=== PATIENT | female | born 1975 | race Two or more races ===

== ENCOUNTER 2017-07-18 11:29 | Emergency (ER) | payer OTHER ==
--- NOTE | 2017-07-18 12:02 | PHYS DOC ---
Adult General Chief Complaint Chief Complaint: ABDOMINAL PAIN HPI HPI Patient is a 41 year old female who presents with abdominal pain. Spoke going on for the last 2 days. She has a kidney stone at the [facility] and follows the [facility] for this. She presents to ER complaining of worsening pain, sore throat and fevers. She states she's also has sore throat for last 2 days. She's had some nausea without any vomiting. She's also felt like she's been having a fever. She's been not wanting eat or drink much over the last few days. States he's also on her period currently. Review of Systems Review of Systems Constitutional: Positive for fever, Denies chills [] Eyes: Denies change in visual acuity, redness, or eye pain [] HENT: Denies nasal congestion or sore throat [] Respiratory: Denies cough or shortness of breath [] Cardiovascular: No additional information not addressed in HPI [] GI: Positive for abdominal pain, nausea, Denies vomiting, bloody stools or diarrhea [] : Denies dysuria or hematuria [] Musculoskeletal: Denies back pain or joint pain [] Integument: Denies rash or skin lesions [] Neurologic: Denies headache, focal weakness or sensory changes [] Endocrine: Denies polyuria or polydipsia [] All other systems were reviewed and found to be within normal limits, except as documented in this note. Current Medications Current Medications Current Medications Medications (Trade) Dose Ordered Sig/Minal Start Time Stop Time Status Last Admin Dose Admin Acetaminophen (Tylenol) 1,000 mg 1X ONCE 07/18/17 13:15 07/18/17 13:16 DC 07/18/17 12:52 1,000 MG Ceftriaxone Sodium 50 ml @ 100 mls/hr 1X ONCE 07/18/17 13:45 07/18/17 14:14 DC 07/18/17 13:50 100 MLS/HR Morphine Sulfate 4 mg PRN Q15MIN PRN 07/18/17 12:30 07/18/17 17:13 DC 07/18/17 13:51 4 MG Ondansetron HCl (Zofran) 4 mg 1X ONCE 07/18/17 12:30 07/18/17 12:31 DC 07/18/17 12:47 4 MG Sodium Chloride 1,000 ml @ 1,000 mls/hr 1X ONCE 07/18/17 13:45 07/18/17 14:44 DC 07/18/17 13:50 1,000 MLS/HR Allergies Allergies Allergies Coded Allergies Type Severity Reaction Last Updated Verified No Known Drug Allergies 07/18/17 No Physical Exam Physical Exam Constitutional: Well developed, well nourished, no acute distress, non-toxic appearance. [] HENT: Normocephalic, atraumatic, bilateral external ears normal, oropharynx moist, erythematous with exudates, no oral exudates, nose normal. [] Eyes: PERRLA, EOMI, conjunctiva normal, no discharge. [] Neck: Normal range of motion, no tenderness, supple, no stridor. [] Cardiovascular:Heart rate regular rhythm, tachycardic, no murmur [] Lungs & Thorax: Bilateral breath sounds clear to auscultation [] Abdomen: Bowel sounds normal, soft, and her to palpation of the left suprapubic area, no rebound or guarding appreciated, no masses, no pulsatile masses. [] Skin: Warm, dry, no erythema, no rash. [] Back: No tenderness, no CVA tenderness. [] Extremities: No tenderness, no cyanosis, no clubbing, ROM intact, no edema. [] Neurologic: Alert and oriented X 3, normal motor function, normal sensory function, no focal deficits noted. [] Psychologic: Affect normal, judgement normal, mood normal. [] Current Patient Data Vital Signs Vital Signs Date Time Temp Pulse Resp B/P (MAP) Pulse Ox O2 Delivery O2 Flow Rate FiO2 07/18/17 16:45 86 16 95/65 (75) 98 Room Air 07/18/17 15:20 99.1 99.1 Lab Values Laboratory Tests Test 07/18/17 11:45 07/18/17 12:05 07/18/17 12:30 Group A Streptococcus Rapid Positive (NEGATIVE) Urine Collection Type Void Urine Color Yellow Urine Clarity Turbid Urine pH 6.5 Urine Specific [place] 1.025 Urine Protein >=300 mg/dL (NEG-TRACE) Urine Glucose (UA) Negative mg/dL (NEG) Urine Ketones (Stick) 40 mg/dL (NEG) Urine Blood Large (NEG) Urine Nitrite Positive (NEG) Urine Bilirubin Negative (NEG) Urine Urobilinogen Dipstick 1.0 mg/dL (0.2 mg/dL) Urine Leukocyte Esterase Large (NEG) Urine RBC Fobs /HPF (0-2) Urine WBC Tntc /HPF (0-4) Urine Bacteria Many /HPF (0-FEW) Urine Test Negative Lactic Acid Level 1.7 mmol/L (0.4-2.0) Urine Opiates Screen Neg (NEG) Urine Methadone Screen Neg (NEG) Urine Barbiturates Neg (NEG) Urine Phencyclidine Screen Neg (NEG) Urine Amphetamine/Methamphetamine Neg (NEG) Urine Benzodiazepines Screen Neg (NEG) Urine Cocaine Screen Neg (NEG) Urine Cannabinoids Screen Neg (NEG) Urine Ethyl Alcohol Neg (NEG) White Blood Count 18.9 x10^3/uL (4.0-11.0) H Red Blood Count 5.03 x10^6/uL (4.30-5.70) Hemoglobin 14.3 g/dL (13.0-17.5) Hematocrit 42.5 % (39.0-53.0) Mean Corpuscular Volume 85 fL (79-100) Mean Corpuscular Hemoglobin 29 pg (25-35) Mean Corpuscular Hemoglobin Concent 34 g/dL (31-37) Red Cell Distribution Width 14.0 % (11.5-14.5) Platelet Count 244 x10^3/uL (140-400) Neutrophils (%) (Auto) 88 % (31-73) H Lymphocytes (%) (Auto) 7 % (24-48) L Monocytes (%) (Auto) 4 % (0-9) Eosinophils (%) (Auto) 0 % (0-3) Basophils (%) (Auto) 0 % (0-3) Neutrophils # (Auto) 16.7 x10^3uL (1.8-7.7) H Lymphocytes # (Auto) 1.3 x10^3/uL (1.0-4.8) Monocytes # (Auto) 0.8 x10^3/uL (0.0-1.1) Eosinophils # (Auto) 0.0 x10^3/uL (0.0-0.7) Basophils # (Auto) 0.1 x10^3/uL (0.0-0.2) Segmented Neutrophils % 83 % (35-66) H Band Neutrophils % 11 % (0-9) H Lymphocytes % 5 % (24-48) L Monocytes % 1 % (0-10) Platelet Estimate Adequate (ADEQUATE) Prothrombin Time 13.8 SEC (11.7-14.0) Prothrombin Time INR 1.1 (0.8-1.1) PTT 38 SEC (24-38) Sodium Level 136 mmol/L (136-145) Potassium Level 3.5 mmol/L (3.5-5.1) Chloride Level 98 mmol/L (98-107) Carbon Dioxide Level 28 mmol/L (21-32) Anion Gap 10 (6-14) Blood Urea Nitrogen 12 mg/dL (7-20) Creatinine 0.9 mg/dL (0.6-1.0) Estimated GFR (Cockcroft-Gault) 69.3 Glucose Level 100 mg/dL (70-99) H Calcium Level 8.7 mg/dL (8.5-10.1) Total Bilirubin 0.4 mg/dL (0.2-1.0) Direct Bilirubin 0.1 mg/dL (0.0-0.2) Aspartate Amino Transferase (AST) 19 U/L (15-37) Alanine Aminotransferase (ALT) 19 U/L (14-59) Alkaline Phosphatase 58 U/L (46-116) Creatine Kinase 65 U/L (26-192) Creatine Kinase MB (Mass) < 0.5 ng/mL (0.0-3.6) Creatine Kinase MB Relative Index 0.8 % (0-4) Total Protein 8.3 g/dL (6.4-8.2) H Albumin 3.8 g/dL (3.4-5.0) Lipase 59 U/L (73-393) L Laboratory Tests 07/18/17 12:30 Laboratory Tests 07/18/17 12:30 Microbiology 07/18/17 Blood Culture - Preliminary, Resulted NO GROWTH AFTER 1 DAY 07/18/17 Urine Culture - Preliminary, Resulted 07/18/17 Urine Culture Result 1 (HAYLEY) - Preliminary, Resulted Microbiology 07/18/17 Blood Culture - Preliminary, Resulted NO GROWTH AFTER 1 DAY 07/18/17 Urine Culture - Preliminary, Resulted 07/18/17 Urine Culture Result 1 (HAYLEY) - Preliminary, Resulted EKG EKG [] Radiology/Procedures Radiology/Procedures [facility] [address] [place] [address] IMAGING REPORT Signed PATIENT: MINDA BISWAS ACCOUNT: [id number] : 1975 LOCATION: ER AGE: 41 SEX: F EXAM STATUS: REG ER ORD. PHYSICIAN: JENNIFER PAREDES MD REASON: hx of stone PROCEDURE: RENAL COMPLETE BILATERAL Renal ultrasound dated 07/18/2017. No comparison available. CLINICAL INDICATION: Flank pain. History of stones. FINDINGS: Right kidney measures 11.1 cm in length. Left kidney measures 12.9 cm in length. There is moderate to severe left hydronephrosis. No definite shadowing calculus. Urinary bladder is nondistended. There may be a small amount of debris in the bladder lumen. IMPRESSION: Moderate to severe left hydronephrosis. Distal obstructing stone or stricture is possible. If indicated, CT could better evaluate. Electronically signed by: Tyler Dumont MD (07/18/2017 3:08 PM) [facility] DICTATED and SIGNED BY: TYLER DUMONT MD DATE: 07/18/17 1506 CC: JENNIFER PAREDES MD; TAY SMITH ~ Impressions: Fever Strep throat Sepsis Course & Med Decision Making Course & Med Decision Making Pertinent Labs and Imaging studies reviewed. (See chart for details) She presents to the fever 103 and she received 1 g Tylenol, she received 2 L normal saline and her heart rate has improved. Patient doesn't meet sepsis criteria with a fever tachycardia, she has had a source with her throat and urine. Lactic acid is not elevated. She is received 2 L of fluids which based on her weight meets her 30 mg/kg bolus. She was started on 1 g Rocephin for her group A strep positive rapid strep and her UTI. Ultrasound of her renal system was pending at this time. Spoke with [facility] and the patient has been accepted by Dr. Ynes Byrnes. She is in stable condition this time being transported by ground ambulance service. Patient's agreeable to this plan is in stable condition at this time. Dragon Disclaimer Dragon Disclaimer This electronic medical record was generated, in whole or in part, using a voice recognition dictation system. Departure Departure Impression: Primary Impression: Fever Disposition: 02 TRANSFER [facility] Condition: STABLE JENNIFER PAREDES MD Jul 18, 2017 12:02
[2017-07-18 12:13] LABS: NEGATIVE OBC STREP NEG; POSITIVE OBC STREP POS
[2017-07-18] MEDS ORDERED: IV NORMAL SALINE 1000ML BAG 1,000 ML IV SCH (12:18)
[2017-07-18 12:22] LABS: BILIRUBIN,URINE NEGATIVE (NEG); GLUCOSE,URINE NEGATIVE (NEG); NITRITE,URINE POSITIVE (NEG); PH,URINE 6.5; PROTEIN,URINE >=300 mg/dL (NEG-TRACE)
[2017-07-18 12:30] LABS: BACTERIA,URINE MANY /HPF (0-FEW); RBC,URINE FOBS /HPF (0-2); WBC,URINE TNTC /HPF (0-4)
[2017-07-18] MEDS ORDERED: ONDANSETRON PF 4 MG/2 ML VIAL. IV ONE (12:30)
[2017-07-18 12:49] LABS: BASO # 0.1 x10^3/uL (0.0-0.2); BASO % 0 % (0-3); EOS % 0 % (0-3); HEMATOCRIT 42.5 % (39.0-53.0); HEMOGLOBIN 14.3 g/dL (13.0-17.5); LYMPH # 1.3 x10^3/uL (1.0-4.8); LYMPH % 7 % (24-48); MEAN CORPUSCULAR HEMOGLOBIN 29 pg (25-35); MEAN CORPUSCULAR HGB CONC 34 g/dL (31-37); MEAN CORPUSCULAR VOLUME 85 fL (79-100); MONO % 4 % (0-9); NEUT % 88 % (31-73); PLATELET COUNT 244 x10^3/uL (140-400); RED BLOOD COUNT 5.03 x10^6/uL (4.30-5.70); WHITE BLOOD COUNT 18.9 x10^3/uL (4.0-11.0)
[2017-07-18] MEDS: MORPHINE SULFATE 4 MG/ML DISP.SYRIN. IV/SQ PRN ×2 (12:49→13:51)
[2017-07-18 12:58] LABS: NEG OBC UR NEG; POS OBC UR POS
[2017-07-18 13:04] LABS: INR 1.1 (0.8-1.1); PROTHROMBIN TIME PATIENT 13.8 SEC (11.7-14.0)
[2017-07-18 13:14] LABS: CALCIUM 8.7 mg/dL (8.5-10.1); CREATININE 0.9 mg/dL (0.6-1.0); GFR 69.3; POTASSIUM 3.5 mmol/L (3.5-5.1)
[2017-07-18] MEDS ORDERED: ACETAMINOPHEN 500 MG TABLET PO ONE (13:15)
[2017-07-18 13:25] LABS: BARBITURATES NEG (NEG); BENZODIAZEPINES NEG (NEG); CANNABINOIDS NEG (NEG); COCAINE NEG (NEG); METHADONE NEG (NEG); OPIATES NEG (NEG); PHENCYCLIDINE NEG (NEG)
[2017-07-18] MEDS ORDERED: IV NORMAL SALINE 1000ML BAG 1,000 ML IV ONE (13:45)
[2017-07-18 13:51] LABS: ALBUMIN 3.8 g/dL (3.4-5.0); DIRECT BILIRUBIN 0.1 mg/dL (0.0-0.2); TOTAL BILIRUBIN 0.4 mg/dL (0.2-1.0); TOTAL PROTEIN 8.3 g/dL (6.4-8.2)
[2017-07-18 14:00] LABS: PLT ESTIMATE ADEQUATE (ADEQUATE)
[2017-07-18 14:33] LABS: CREATINE KINASE 65 U/L (26-192)
[2017-07-18 14:45] LABS: CKMB MASS < 0.5 ng/mL (0.0-3.6)
--- NOTE | 2017-07-18 15:11 | RAD ---
Renal ultrasound dated 07/18/2017. No comparison available. CLINICAL INDICATION: Flank pain. History of stones. FINDINGS: Right kidney measures 11.1 cm in length. Left kidney measures 12.9 cm in length. There is moderate to severe left hydronephrosis. No definite shadowing calculus. Urinary bladder is nondistended. There may be a small amount of debris in the bladder lumen. IMPRESSION: Moderate to severe left hydronephrosis. Distal obstructing stone or stricture is possible. If indicated, CT could better evaluate. Electronically signed by: Tyler Dumont MD (07/18/2017 3:08 PM) [facility]
[2017-07-18 16:45] VITALS: BP 95/65
== END 2017-07-18 17:08 | disposition short-term general hospital (02) ==
LOC: EDSEX 11:29 → ER 11:29
DX: R50.9 Fever, unspecified (principal); J02.9 Acute pharyngitis, unspecified; R10.32 Left lower quadrant pain; R11.0 Nausea
CPT/HCPCS: 36415; 76770; 80048; 80076; 80307; 81001; 81025; 82553; 83605; 83690; 84703; 85007; 85025; 85610; 85730; 87040; 87086; 87186; 87880; 96361; 96365; 96375; 96376; 99285; J0690; J2270; J2405; J7030; G0479